=== PATIENT | male | born 1975 | race Caucasian/White ===

== ENCOUNTER 2018-01-02 13:15 | Emergency (ER) | payer OTHER, SELFPAY ==
[2018-01-02 13:20] VITALS: BP 119/75; PULSE 62; RESP 16; TEMP 36.5; O2SAT 98
--- NOTE | 2018-01-02 13:33 | W.ED.GENAD ---
Discharge Plan Disposition Patient Disposition: HOME Condition: Good Discharge Details Chief Complaint: Laceration Clinical Impression: Puncture wound of plantar aspect of right foot Primary Care Provider: Alissa Oliveira ED Provider: Quinton Schreiber Home Meds and New Rx's Prescriptions: New ciprofloxacin HCl 500 mg tablet 500 mg PO BID Qty: 10 RF: 0 Discharge Instructions Instructions: Puncture Wound (ED) Additional Instructions: Watch wound very closely and continue to keep it clean and dry. If there starts to have any signs of infection such as redness, purulent drainage, significant swelling or increase in pain you should start the antibiotics immediately. Otherwise follow-up with your primary care provider as needed for reassessment. Referrals: Alissa Oliveira MD [Primary Care Provider] - (As needed for reassessment) Discharge Data Discharge Date/Time-TO BE ENTERED AT DEPARTURE: 01/02/18 13:34 Medical Decision Making Patient presenting to the emergency department chief complaint of plantar puncture wound. Patient states yesterday while wearing some boots he stepped on a chase nail that went through the shoe and only slightly punctured the bottom of his foot. Patient states he thoroughly washed it out and put some bacitracin on it. Today patient denies any pain or discomfort to the area, no redness, no rash, no swelling but states he is mainly here due to not being up-to-date on tetanus. Patient denies any other symptoms. Physical exam shows a superficial puncture wound to the plantar surface of the right foot. It is nonbleeding and does not appear to have any significant depth in nature. Given the patient has already thoroughly washed this out and wound appears clean dry I do not feel that any further intervention is needed. Patient was ordered a tetanus and did discuss with patient risk versus benefit of prophylactic coverage for Pseudomonas with ciprofloxacin. Given that there are no symptoms at this time of infection and patient seems reliable we did discuss a pocket prescription for Cipro and for patient only begin this if he notices signs of infection otherwise he may discontinue to do acute wound care and keep wound clean and dry. After discussion of diagnosis and plan of care patient has no further needs, questions, or concerns and states clear understanding to return to the emergency department for any worsening symptoms. HPI General Mode of arrival: ambulatory. Date/Time Provider Initiated Documentation: 01/02/18 13:33. Limitations to Documentation: no limitations. Information obtained by: patient and RN notes reviewed. History of Present Illness 42 year old M presents to the emergency department with the chief complaint of Puncture wound right foot, Quality is described as other (Denies pain or discomfort), and is localized to the right and lower extremity. Patient reports no radiation. Patient started experiencing this day(s) (1) and it has been constant. No relieving factors improve symptom(s), No exacerbating factors reported . Patient notes no other symptoms.. Patient did receive the following treatments prior to arrival, other (Bacitracin) Related Data Home Medications Medication Instructions Recorded Confirmed ciprofloxacin HCl 500 mg PO BID #10 tab 01/02/18 Previous Rx's Medication Instructions Recorded ciprofloxacin HCl 500 mg PO BID #10 tab 01/02/18 Allergies Allergy/AdvReac Type Severity Reaction Status Date / Time No Known Allergies Allergy Unverified 01/02/18 13:24 General Stated Complaint: Laceration VÍCTOR: 4 Review of Systems Constitutional Denies chills and Denies fever(s) Musculoskeletal Denies myalgias, Denies deformity, Denies limited range of motion, Denies muscle cramps, Denies muscle weakness and Denies numbness Integumentary/Breasts Reports as per HPI Neurologic Denies numbness PFSH Social History Smoking/Tobacco Use Status: Never Exam Const General: cooperative and no acute distress Orientation: alert, awake and oriented x3 Limitations: mental status not altered Resp Effort & Inspection: normal respiratory effort and able to speak in complete sentences Neuro General: alert, awake, oriented x3, gait normal, tone normal, moves all extremities and no focal motor deficits Motor: no movement abnormalities noted Sensory Exam: no sensory deficits noted Extrem General: normal exam except as noted Right lower extremity: foot Details: puncture wound (Plantar surface, superficial nonbleeding); no tenderness Course Vital Signs Temperature 36.5 C 01/02/18 13:20 Pulse 62 01/02/18 13:20 Respiratory Rate 16 01/02/18 13:20 Blood Pressure 119/75 01/02/18 13:20 Pulse Oximetry 98 01/02/18 13:20 Temperature 36.5 C 01/02/18 13:20 Temperature Source Skin 01/02/18 13:20 Pulse 62 01/02/18 13:20 Respiratory Rate 16 01/02/18 13:20 Respiratory Effort 01/02/18 13:22 Blood Pressure 119/75 01/02/18 13:20 Blood Pressure Position Sitting 01/02/18 13:20 Pulse Oximetry 98 01/02/18 13:20 Oxygen Delivery Method Room Air 01/02/18 13:20 Oxygen Flow Rate 0 01/02/18 13:20 Pain Level 0 01/02/18 13:20
--- NOTE | 2018-01-02 13:37 | ED.GENADUL_ITS ---
Discharge Plan Disposition Patient Disposition: HOME Condition: Good Discharge Details Chief Complaint: Laceration Clinical Impression: Puncture wound of plantar aspect of right foot Primary Care Provider: Alissa Oliveira ED Provider: Quinton Schreiber Home Meds and New Rx's Prescriptions: New ciprofloxacin HCl 500 mg tablet 500 mg PO BID Qty: 10 RF: 0 Discharge Instructions Instructions: Puncture Wound (ED) Additional Instructions: Watch wound very closely and continue to keep it clean and dry. If there starts to have any signs of infection such as redness, purulent drainage, significant swelling or increase in pain you should start the antibiotics immediately. Otherwise follow-up with your primary care provider as needed for reassessment. Referrals: Alissa Oliveira MD [Primary Care Provider] - (As needed for reassessment) Discharge Data Discharge Date/Time-TO BE ENTERED AT DEPARTURE: 01/02/18 13:34 Medical Decision Making Patient presenting to the emergency department chief complaint of plantar puncture wound. Patient states yesterday while wearing some boots he stepped on a chase nail that went through the shoe and only slightly punctured the bottom of his foot. Patient states he thoroughly washed it out and put some bacitracin on it. Today patient denies any pain or discomfort to the area, no redness, no rash, no swelling but states he is mainly here due to not being up- to-date on tetanus. Patient denies any other symptoms. Physical exam shows a superficial puncture wound to the plantar surface of the right foot. It is nonbleeding and does not appear to have any significant depth in nature. Given the patient has already thoroughly washed this out and wound appears clean dry I do not feel that any further intervention is needed. Patient was ordered a tetanus and did discuss with patient risk versus benefit of prophylactic coverage for Pseudomonas with ciprofloxacin. Given that there are no symptoms at this time of infection and patient seems reliable we did discuss a pocket prescription for Cipro and for patient only begin this if he notices signs of infection otherwise he may discontinue to do acute wound care and keep wound clean and dry. After discussion of diagnosis and plan of care patient has no further needs, questions, or concerns and states clear understanding to return to the emergency department for any worsening symptoms. HPI General Mode of arrival: ambulatory . Date/Time Provider Initiated Documentation: 01/02/18 13:33 . Limitations to Documentation: no limitations . Information obtained by: patient and RN notes reviewed . History of Present Illness 42 year old M presents to the emergency department with the chief complaint of Puncture wound right foot, Quality is described as other (Denies pain or discomfort), and is localized to the right and lower extremity. Patient reports no radiation. Patient started experiencing this day(s) (1) and it has been constant. No relieving factors improve symptom(s), No exacerbating factors reported . Patient notes no other symptoms.. Patient did receive the following treatments prior to arrival, other (Bacitracin) Related Data Home Medications Medication Instructions Recorded Confirmed ciprofloxacin HCl 500 mg PO BID #10 tab 01/02/18 Previous Rx's Medication Instructions Recorded ciprofloxacin HCl 500 mg PO BID #10 tab 01/02/18 Allergies Allergy/AdvReac Type Severity Reaction Status Date / Time No Known Allergies Allergy Unverified 01/02/18 13:24 General Stated Complaint: Laceration VÍCTOR: 4 Review of Systems Constitutional Denies chills and Denies fever(s) Musculoskeletal Denies myalgias, Denies deformity, Denies limited range of motion, Denies muscle cramps, Denies muscle weakness and Denies numbness Integumentary/Breasts Reports as per HPI Neurologic Denies numbness PFSH Social History Smoking/Tobacco Use Status: Never Exam Const General: cooperative and no acute distress Orientation: alert, awake and oriented x3 Limitations: mental status not altered Resp Effort & Inspection: normal respiratory effort and able to speak in complete sentences Neuro General: alert, awake, oriented x3, gait normal, tone normal, moves all extremities and no focal motor deficits Motor: no movement abnormalities noted Sensory Exam: no sensory deficits noted Extrem General: normal exam except as noted Right lower extremity: foot Details: puncture wound (Plantar surface, superficial nonbleeding); no tenderness Course Vital Signs Temperature 36.5 C 01/02/18 13:20 Pulse 62 01/02/18 13:20 Respiratory Rate 16 01/02/18 13:20 Blood Pressure 119/75 01/02/18 13:20 Pulse Oximetry 98 01/02/18 13:20 Temperature 36.5 C 01/02/18 13:20 Temperature Source Skin 01/02/18 13:20 Pulse 62 01/02/18 13:20 Respiratory Rate 16 01/02/18 13:20 Respiratory Effort 01/02/18 13:22 Blood Pressure 119/75 01/02/18 13:20 Blood Pressure Position Sitting 01/02/18 13:20 Pulse Oximetry 98 01/02/18 13:20 Oxygen Delivery Method Room Air 01/02/18 13:20 Oxygen Flow Rate 0 01/02/18 13:20 Pain Level 0 01/02/18 13:20
[2018-01-02 13:45] VITALS: BP 119/75; PULSE 62; RESP 16; TEMP 36.5; O2SAT 98
== END 2018-01-02 13:34 | disposition home or self-care (01) ==
PROVIDERS: Emergency Provider Nurse Practitioner Family; PCP Family Medicine
DX: S91.331A Puncture wound without foreign body, right foot, initial encounter (principal); W45.0XXA Nail entering through skin, initial encounter
CPT/HCPCS: 90471; 99284

== ENCOUNTER 2021-03-15 01:13 | Outpatient (CLI) | payer OTHER, SELFPAY ==
[2021-03-15 10:57] LABS: Source Nasal/Nares
[2021-03-15 14:39] LABS: COVID-19 PCR Negative (Negative)
== END 2021-03-15 01:14 | disposition home or self-care (01) ==
LOC: LBO 01:13
PROVIDERS: PCP Nurse Practitioner Adult Health; Visit Provider Surgery
DX: Z20.822 Contact with and (suspected) exposure to COVID-19 (principal)
CPT/HCPCS: 87635

== ENCOUNTER 2021-03-17 06:15 | Day surgery (SDC) | payer OTHER, SELFPAY ==
[2021-03-17] VITALS (9 sets, daily range): BP systolic 110–123; BP diastolic 79–91; PULSE 62–72; RESP 12–18; TEMP 36.2–36.6; TEMPC 36.2; O2SAT 97–100; BMI 26.9
--- NOTE | 2021-03-17 06:31 | ROE_ITS ---
Date of service: 03/17/21 Time of Service: 08:15 Operative Note Operative Note DATE OF PROCEDURE: 03/17/21 PRE-OP DIAGNOSIS: Left inguinal hernia POST-OP DIAGNOSIS: other (direct inguinal hernia) PROCEDURE: Left inguinal hernia repair with mesh SURGEON: Gabriela Florez HEAD ATHLETIC TRAINER: Stephanie Mendoza ANESTHESIA TYPE: Local By Surgeon, General LMA/ETT (Siva Biggs CRNa) and Primary Nerve Block Refer to Anesthesia Record ESTIMATED BLOOD LOSS: 5 PATHOLOGY: none sent COMPLICATIONS: None Patient was transported to: same day Patient's condition: stable Implants: [employer] LOT- [id number] REF- [id number] 06-24-2025 Indications: Mr. Nichols is a healthy 45-year-old gentleman who is here today because of a left inguinal hernia which he noticed about a week before [place]. We discussed the anatomy of hernias as well as the repair. We reviewed the potential complications. Discussed postoperative activity restrictions for a month. Patient wishes to proceed with scheduling the hernia repair. Risks, benefits and complications have been reviewed. Complications include but are not limited to bleeding, infection, injury to vas, vessels and nerves, injury to bowel and adverse reaction to medications. Questions were entertained and answered to their satisfaction and they wished to proceed. Left inguinal hernia repair with mesh Findings: small indirect hernia and small direct hernia Small cord lipoma Procedure Description: After informed concent was obtained the patient was taken to the operating room and placed in a supine position. Monitors and SCDs were applied and a timeout was done. The patient's name, date of , procedure type, procedure site, allergies to medications, preoperative antibiotic, and DVT prophylaxis were all reviewed. Fire risk was assessed. Next anesthesia did a tap block on the left side under ultrasound guidance. Please see their separate dictation. Once anesthesia was done the abdomen was prepped and draped in a sterile surgical fashion. 0.5% Marcaine mixed with exparel was injected into the dermis in the left lower quadrant. An incision was made with a 15 blade in the left lower quadrant. Dissection was done with cautery through the subcutaneous tissues and Nati's fascia down to the external oblique fascia. The external ring was identified and the external oblique fascia was opened sharply through the external ring. The cut fascia was grasped with hemostats the cord structures were identified and a Chas drain was placed around them. The ilioinguinal nerve was identified and cut. The cremasteric muscle was dissected away from the cord structures using both cautery and blunt dissection. A small cord lipoma was identified and removed. There was no hernia sac identified. a small direct hernia was identified. A flat piece of mesh was then attached to the lacunar ligament using a 2-0 Prolene double armed suture. The mesh was secured laterally and medially with a 2-0 Prolene, with a running suture. The tails of the mesh were wrapped around the cord structures effectively cinching down the internal ring. Once the mesh was secured the tissues were irrigated with some normal saline. No bleeding was identified. The external oblique fascia was reapproximated using 2-0 Vicryl running suture. The Nati's fascia was reapproximated using interrupted 3-0 Vicryl. The dermis was re-approximated with a running 4-0 Vicryl. The skin was cleaned and dried and skin affix was applied. The patient was woken up and taken back to recovery in stable condition. There were no immediate complications. Sponge, instrument and needle counts were correct at the end of the case x2.
--- NOTE | 2021-03-17 06:33 | PDOC.DSDIS_ITS ---
Discharge Plan Disposition Patient Disposition: HOME Condition: Good Discharge Details Reason For Visit: [facility] Attending Provider: Gabriela Florez Primary Care Provider: Linda Olivas Home Meds and New Rx's Prescriptions: Continued CBD Gummy 5 mg PO HS PRN (Reason: sleep) RF: 0 valacyclovir [Valtrex] 1 gram tablet 2,000 mg PO .q12h x1 day RF: 0 Discharge Instructions Instructions: Open Herniorrhaphy (DC) Additional Instructions: Activity at Home after surgery: 1. Make sure you walk outside at least 4 times per day 2. You should be able to climb a flight of stairs 3. No driving while in pain or taking pain medications 4. No strenuous activity or heavy lifting for 4 weeks (open surgery) Diet, Nutrition, & wound healin. Avoid alcohol until after you are recovered from your surgery 2. Make sure to eat plenty of lean protein (meat, fish, eggs, cottage cheese, beans) 3. Eat a variety of fruits and vegetables. Eat plenty of high fiber foods to avoid constipation. 4. Drink plenty of liquids to stay hydrated and avoid constipation Pain Medications: 1. Tylenol 650mg every 6 hours as needed and Ibuprofen 600 mg every 6 hours as needed. You may alternate between the 2 medications every 3 hours 2. If a narcotic has been prescribed take as directed only for b reakthrough pain For Constipation: 1. Take Milk of Magnesia or MiraLax as needed for constipation Other: 1. You may shower daily. Do not scrub the incisions 2. Do not soak the incisions for 1 week 3. You may alternate ice and heat as needed for pain and swelling Wound Care: 1. Keep the incisions clean and dry Please call our office if you develop: 1. Fevers >101.5 2. Nausea or Vomiting 3. Worsening pain 4. Redness and thick discharge from the wounds If after hours please call the Hospital at and ask to speak to the on-call surgeon Referrals: Gabriela Florez MD [ [facility] STAFF PHYSICIAN] - 03/26/21 8:30 am Activity:: see above Remove Dressings/Wound Care:: Do Not Remove Shower/Bathe:: 24 hours Diet:: As Tolerated Discharge Orders Discharge Orders: Discharge Order (Routine); Ordered 03/17/21 Ordered By: Gabriela Florez
[2021-03-17] MEDS: Gabapentin 300 MG CAP 600 MG PO (06:41)
[2021-03-17] MEDS: Celecoxib 200 MG CAP PO (06:41)
[2021-03-17] MEDS: Acetaminophen 500 MG TAB 1000 MG PO (06:41)
[2021-03-17] MEDS: Lactated Ringers 1,000 ML 80 ML IV (06:42)
--- NOTE | 2021-03-17 07:00 | W.ANESPRE ---
General Info Date of Service Date Performed: 03/17/21 Height: 5 ft 11 in Weight: 87.4 kg Body Mass Index (BMI): 26.9 Surgical Procedure: Operation Date: 03/17/21 07:40 Proposed Procedures Side Surgeon p Herniorrhaphy Inguinal Left Gabriela Florez MD Meds Allergies and Home Medications Allergies Allergy/AdvReac Type Severity Reaction Status Date / Time No Known Allergies Allergy Verified 03/17/21 06:25 Home Medication Medication Instructions Recorded valacyclovir 1 gram tablet 2,000 mg PO .q12h x1 day tab 06/03/19 CBD Gummy 5 mg PO HS PRN 07/20/20 Current Visit Medications: Current Medications Generic Name Dose Route Start Last Admin Trade Name Freq PRN Reason Stop Dose Admin Acetaminophen 1,000 mg 03/17/21 06:00 03/17/21 06:41 Acetaminophen 500 Mg Tab PO 03/17/21 23:59 1,000 mg PREOP NO Administration Celecoxib 200 mg 03/17/21 06:00 03/17/21 06:41 Celecoxib 200 Mg Cap PO 03/17/21 23:59 200 mg PREOP NO Administration Gabapentin 600 mg 03/17/21 06:00 03/17/21 06:41 Gabapentin 300 Mg Cap PO 03/17/21 23:59 600 mg PREOP NO Administration Ringer's Solution 1,000 mls @ 80 mls/hr 03/17/21 06:00 03/17/21 06:42 IV 03/29/21 23:59 80 mls/hr INFUSION NO Administration Cefazolin Sodium/Dextrose 2 gm in 50 mls @ 100 mls/hr 03/17/21 06:00 Ancef Duplex IVPB 03/17/21 23:59 PREOP NO Ondansetron HCl 4 mg/ Sodium 52 mls @ 200 mls/hr 03/17/21 06:34 Chloride IVPB Q6H PRN PRN IV Miscellaneous Supplies 1 each 03/17/21 06:00 Iv Access IV 03/29/21 23:59 DIRECTED NO Oxycodone HCl 5 mg 03/17/21 06:34 Oxycodone 5 Mg Tab PO Q3H PRN PRN Pain Sodium Chloride 0 ml 03/17/21 06:00 Normal Saline Flush 10 Ml Syr IV 03/29/21 23:59 PRN PRN Sodium Chloride 0 ml 03/17/21 06:00 Normal Saline 10 Ml Vial IJ 03/29/21 23:59 DIRECTED PRN Sterile Water 0 ml 03/17/21 06:00 Water,Injection,Sterile 10 Ml Vial IJ 03/29/21 23:59 DIRECTED PRN PFSH Active Problems Active Problems: Problem Status Onset Code Left groin hernia K40.90 Medical History Medical History Acute anxiety Early-on COVID related, etc. 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; PT effective; exercises Recurrent cold sores RX Valtrex PRN Right wrist tendonitis Intermittent Surgical History Surgical History History of repair of ACL R S/P vasectomy Tobacco Smoking/Tobacco Use Status: Never Alcohol Alcohol Intake: never Substance Use Substance use: Never Substance use type: does not use Vital Signs and Lab Results Vital Signs Most Recent Vital Signs in EMR: Most Recent Vital Signs Temp Pulse Resp BP Pulse Ox 36.6 C 72 18 120/90 99 03/17/21 06:15 03/17/21 06:15 03/17/21 06:15 03/17/21 06:15 03/17/21 06:15 Lab Results Blood Type / Crossmatch: No Data to Display Complete Blood Count: No Data to Display Complete Metabolic Panel: No Data to Display Liver Function Panel: No Data to Display Coagulation Panel: No Data to Display Cardiac Panel: No Data to Display Arterial Blood Gas: No Data to Display Venous Blood Gas: No Data to Display Pancreas Panel: No Data to Display Thyroid Panel: No Data to Display Infectious Disease: Coronavirus (COVID-19)(PCR) Negative (Negative) 03/15/21 08:52 03/15/21 Coronavirus 2019 Source Nasal/Nares 03/15/21 08:52 03/15/21 Blood Cultures: No Data to Display Toxicology Panel: No Data to Display Anesthesia Assessment and Plan Anesthesia History Personal History: No History of Anesthesia Complications Family History: No Family History of Anesthesia Complications Exercise Tolerance Exercise Tolerance: Metabolic Equivalents>4 Pertinent Negatives Pertinent Negatives: No Symptoms of GERD, No Major Cardiovascular Symptoms or Complaints, No Major Pulmonary Symptoms or Complaints and No History of CVA/TIA Cardiac & Pulmonary Exam Cardiac Exam: Normal S1/S2 Heart Sounds Pulmonary Exam: Clear Bilateral Breath Sounds Implantable Cardiac Device Does patient have a Pacemaker or an ICD?: No Airway Exam Known Difficult Airway: No Mallampati Class: 1 Mouth Opening: Narrow (< 3cm) Thyromental Distance: Greater than 3 cm Neck Range of Motion: Full ROM Neck Circumference: Normal Teeth Condition: Normal Dentition ASA Classification ASA Score: ASA 2 Emergency Case?: No NPO Status NPO Status: NPO Clears >2 hours, Solids >8 hours Anesthesia Plan Resuscitation Status: Full Code Anesthesia Technique: General Anesthesia Airway Planned: LMA Monitors Used: Standard Monitors
[2021-03-17] MEDS: ceFAZolin 2 GM/50 ML BAG IVPB (07:21)
--- NOTE | 2021-03-17 07:44 | W.ANESNERVE ---
Nerve Block Single Injection Procedure Date and Time Date Performed: 03/17/21 Procedure Start: 07:44 Location Where Procedure Performed Procedure Location: Operating Room Procedure Stop: 07:50 Reason Performed: Postoperative Analgesia Requesting Provider: Gautam Timeout Performed Timeout Performed: Yes Monitoring Used ECG, Blood Pressure, SpO2 and ETCO2 Sterility Sterility: Hand Hygiene, Surgical Cap, Surgical Mask, Sterile Gloves, Eye Protection and Chlorhexidine Sedation Given During Procedure Sedation Given (Indicate Dose Given): Propofol IV Dose:: 150 mcg/kg/min Patient Mental Status Patient Mental Status: Performed under general anesthesia Nerve Block 1st Nerve Block: Laterality: Left Block Type: TAP Unilateral (+ Ilioinguinal/Illiohypogastric) Needle / Catheter Used: 100mm SonoPlex II Local Anesthetic Bolus (Indicate Dose Given): Bupivacaine 0.5% Dose:: 20cc and Exparel Dose:: 10 cc Additives (Indicate Dose Given): None Ultrasound: Sterile probe cover and gel used Ultrasound Image Saved?: Yes Nerve Stimulator: Not Used Paresthesia: None Procedure Tolerated: No Complications and Patient tolerated well Procedure Outcome: Successful Performed By: Kalyan
[2021-03-17] MEDS: Bupivacaine 0.25% Pres-Free 30 ML VIAL (07:46)
[2021-03-17] MEDS: Bupivacaine LIPOSOME/PF 133 MG/10 ML VIAL IJ (07:46)
--- NOTE | 2021-03-17 08:38 | W.ANESPOSTOP ---
Postoperative Evaluation Date, Time and Location Date Performed: 03/17/21 Time Performed: 08:38 Patient Location: Day Surgery Unit Vital Signs Most Recent Imported Vital Signs: Most Recent Vital Signs Temp Pulse Resp BP Pulse Ox 36.6 C 72 18 120/90 99 03/17/21 06:15 03/17/21 06:15 03/17/21 06:15 03/17/21 06:15 03/17/21 06:15 Most Recent Manually Entered Vital Signs: Adult Blood Pressure: 114/84 Heart Rate: 70 Respirations: 12 Oxygen Saturation (%): 97 Temperature (C): 36.2 C Pain Score (0-10 Scale): 0 Assessment Mental Status: Awake (Alert & Oriented to Patient Baseline) Airway and Respiratory Function: Patent airway with normal (patient baseline) respiratory exam Cardiovascular Function: Hemodynamically Stable Hydration Status: Adequately Hydrated Nausea & Vomiting: No Nausea or Vomiting Pain: Pt. Denies Any Pain Peripheral Nerve Block: Regional nerve block not resolved at time of post operative discharge
== END 2021-03-17 10:14 | disposition home or self-care (01) ==
PROVIDERS: PCP Nurse Practitioner Adult Health; Visit Provider Surgery
PROC: (CPT 49505; principal; 2021-03-17 07:30)
DX: K40.90 Unilateral inguinal hernia, without obstruction or gangrene, not specified as recurrent (principal); D17.6 Benign lipomatous neoplasm of spermatic cord
CPT/HCPCS: 49505; 55520; 76942; C1781; J0690; J1100; J1885; J2001; J2250; J2405

== ENCOUNTER 2022-05-09 10:12 | Outpatient (CLI) | payer OTHER, SELFPAY ==
--- NOTE | 2022-05-09 09:00 | DI.RAD_ITS ---
Exam(s) XR KNEE LT 3V AP,LAT,GABRIELLA EXAM: XR KNEE LT 3V AP,LAT,GABRIELLA CLINICAL HISTORY: L knee pain. TECHNIQUE: 2D digital imaging was performed of the left knee. Three images were obtained. AP, late ral and PA tunnel views were obtained. COMPARISON: No exams were available for comparison FINDINGS: BONES: No acute fracture is present. No bony destructive lesion is seen. JOINTS: The knee is normally aligned. There is a moderate joint effusion. SOFT TISSUE: Normal. IMPRESSION: Moderate joint effusion. DATA REPOSITORY: RADIATION DOSE DELIVERED:
== END 2022-05-09 10:13 | disposition home or self-care (01) ==
LOC: DIORS 10:13
PROVIDERS: PCP Nurse Practitioner Adult Health; Referring Provider Nurse Practitioner Adult Health; Visit Provider Physician Assistant
DX: M25.562 Pain in left knee (principal); M25.462 Effusion, left knee
CPT/HCPCS: 73562

== ENCOUNTER 2022-12-14 09:43 | Emergency (ER) | payer OTHER, SELFPAY ==
[2022-12-14] VITALS (17 sets, daily range): BP systolic 119–164; BP diastolic 76–100; PULSE 69–84; RESP 10–22; TEMP 36.6; O2SAT 93–99
--- NOTE | 2022-12-14 09:30 | RT.EKG_ITS ---
APPROVED REPORT Exam: Resting ECG Reason for Exam: chest pain Patient Location: E HR:83 bpm ECG Measurements Heart Rate 83 AXIS MD 136 P 39 QRSd 88 QRS 54 QT 360 T 45 QTc 424 Conclusion Sinus rhythm...normal P axis, V-rate 60- 99 sinus rhtyhm, normal axis, normal intervals, non ischemic
--- NOTE | 2022-12-14 10:00 | DI.RAD_ITS ---
Exam(s) XR CHEST 2V PA LATERAL EXAM: XR CHEST 2V PA LATERAL CLINICAL HISTORY: chest pain TECHNIQUE: 2D digital imaging was performed of the chest. Two images were obtained. PA and lateral views were obtained. COMPARISON: No exams were available for comparison FINDINGS: MEDIASTINUM: Normal. HEART: Normal. PULMONARY VASCULATURE: Normal. LUNGS: Clear. PLEURAL SPACE: No pleural effusion or pneumothorax. BONE:Within normal limits for the patient's age. OTHER FINDINGS:Normal. IMPRESSION: No acute pulmonary findings. DATA REPOSITORY: RADIATION DOSE DELIVERED:
--- NOTE | 2022-12-14 10:08 | ED.GENADUL_ITS ---
Discharge Plan Disposition Patient Disposition: Home Condition: Improving Discharge Details Chief Complaint: Chest Pain Clinical Impression: Chest pain Primary Care Provider: Linda Olivas ED Provider: Charles Israel Home Meds and New Rx's Prescriptions: No Action CBD Gummy 5 mg PO HS PRN (Reason: sleep) Discharge Instructions Instructions: Chest Pain (ED) Additional Instructions: Please follow-up with your primary care physician. Return to the emergency department for any worsening symptoms Medical Decision Making 47-year-old male no history of coronary artery disease, or thromboembolic disease, presents with epigastric/chest discomfort rating to left arm associate with diaphoresis belching/heartburn sensation that began yesterday worsening this morning, nonexertional, no shortness of breath no abdominal pain no back pain, no peripheral edema, equal radial pulses bilaterally EKG normal sinus rhy thm nonischemic; consider gastritis versus ACS versus biliary colic versus less likely pancreatitis lower suspicion for PE, must also consider aortic pathology however quality of discomfort not tearing none pressure-like no radiation to back with normal perfusion examination, low suspicion for intracranial process such as CVA or TIA, was also consider early gastroenteritis; EKG chest x-ray labs aspirin GI cocktail fluids. 11:33 resting comfortably, asymptomatic, chest pain free, dispo pending second troponin 13: 37 2 troponin negative, x-ray clear, chest pain-free, improvement after GI cocktail. Home care instructions return precautions HPI General Date/Time Provider Initiated Documentation: 12/14/22 09:59 . HPI Narrative: 47-year-old male presents with epigastric discomfort radiating to left arm associated with belching diaphoresis and lightheadedness that began yesterday but worsened this morning, patient took an aspirin and TheraFlu before arrival here. Denies abdominal pain back pain shortness of breath leg pain or swelling or history of cardiovascular disease coronary disease or thromboembolic disease. Related Data Home Medications Medication Instructions Recorded Confirmed CBD Gummy 5 mg PO HS PRN sleep 07/20/20 12/14/22 Allergies Allergy/AdvReac Type Severity Reaction Status Date / Time No Known Allergies Allergy Verified 12/14/22 09:52 General Stated Complaint: Chest Pain VÍCTOR: 3 Review of Systems Narrative: Review of Systems Constitutional: negative Eyes: negative ENT: negative Cardiovascular: Dizziness, diaphoresis Respiratory: negative Gastrointestinal: Epigastric discomfort : negative Musculoskeletal: negative Skin: negative Neurologic: negative Psych: negative PFSH All Active Problems (Updated 12/14/22 @ 13:39 by Charles Israel MD) Chest pain (Acute) Internal derangement of left knee (Acute) Left knee pain (Acute ~03/2022) ?ACL injury s/p alpine skiing; PT & Ortho referrals Lumbar spine pain (Acute) Intermittent; 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; PT effective; exercises Recurrent cold sores RX Valtrex PRN Right wrist tendonitis Intermittent Surgical History History of repair of ACL R S/P inguinal hernia repair using synthetic patch (~03/17/21) S/P vasectomy (~04/2020) Family History Mother Lymphoma ~49yo Father No significant medical problems Sister No significant medical problems Paternal Grandmother Dementia Developed in her late 90s; very mild Maternal Grandfather No significant medical problems Lived into 90s Maternal Grandmother No significant medical problems Lived into 90s Paternal Grandfather No significant medical problems Lived into 90s Social History Smoking/Tobacco Use Status: Never Smoking risk assessment performed?: Yes Alcohol Intake: never Drug use: Never Substance use type: does not use Adopted: No Caregiver/Support person: No Foster care: No Household members: spouse, family, children and other Details: Emelia Huber; daughter Edis casillas 2016, due 06/2019 second child Housing: house Number of Children: 2 number of grandchildren: 0 Communication Needs: None Do you need help understanding health information?: Never current occupation: Self-Employed, Property Management Sexually active: Yes Do you think of yourself as: straight/heterosexual Current gender identity: male What is your relationship status?: Panel score (0-1 are the most socially isolated patients): 1 What type of physical activity do you participate in: bicycling and regular exercise Seatbelt use: always Working smoke detector in home: Yes Fire extinguisher in home: Yes Carbon monox detector in home: Yes Do you feel safe at home: Yes Do you feel safe in your relationship?: Yes Exam Narrative Exam Narrative: Physical Examination General: alert, awake, cooperative, resting comfortably, no acute distress HEENT: normocephalic, atraumatic; PERRL, EOM intact, conjunctiva normal; no nasal discharge; moist mucous membranes, oral and pharyngeal mucosa normal, tolerating secretions Neck: supple, trachea midline; full ROM Chest: normal to inspection Respiratory: normal respiratory effort, speaking in full sentences, clear to auscultation, no wheezing, rales or rhonchi Cardiac: regular rate, regular rhythm, S1S2 intact, no murmurs rubs or gallops; equal radial pulses bilaterally GI: abdomen soft, non-tender, non-distended; no palpable mass or hepatosplenomegaly Skin: no lesions, rashes or trauma appreciated Neuro: AAOx3, normal speech, moving all extremities Extremities: No peripheral edema Psych: Appropriate mood and affect Course Vital Signs Vital signs: Vital Signs Temperature 36.6 C 12/14/22 09:48 Pulse 84 12/14/22 09:48 Respiratory Rate 18 12/14/22 09:48 Blood Pressure 164/100 H 12/14/22 09:48 Pulse Oximetry 99 12/14/22 09:48 Temperature 36.6 C 12/14/22 09:48 Temperature Source Skin 12/14/22 09:48 Pulse 84 12/14/22 09:48 Respiratory Rate 18 12/14/22 09:48 Respiratory Effort Normal 12/14/22 09:51 Blood Pressure 164/100 H 12/14/22 09:48 Blood Pressure Position Supine 12/14/22 09:48 Pulse Oximetry 99 12/14/22 09:48 Oxygen Delivery Method Room Air 12/14/22 09:48 Oxygen Flow Rate 0 12/14/22 09:48
[2022-12-14 10:42] LABS: Abs Immature Grans 0.01 10^3/uL (0.0-0.06); Absolute Basophil Count 0.08 10^3/uL (0.0-0.2); Absolute Eosinophil Count 0.07 10^3/uL (0.0-0.7); Absolute Lymphocyte Count 0.86 10^3/uL (1.2-3.4); Absolute Monocyte Count 0.71 10^3/uL (0.1-0.8); Absolute Neutrophil Count 3.18 10^3/uL (1.2-6.7); Basophils % 1.6; Eosinophils % 1.4; HCT 42.2 % (40.0-50.0); HGB 14.4 g/dL (13.5-17.5); Immature Grans % 0.2; Lymphocytes % 17.5; MCH 29.2 pg (27.0-33.0); MCHC 34.1 % (32.0-36.0); MCV 86 fL (80-95); MPV 9.9 fL (8.0-11.0); Monocytes % 14.5; Neutrophils % 64.8; Platelet Count 196 10^3/uL (130-400); RBC 4.93 10^6/uL (4.36-5.78); RDW-SD 37.7 fL; WBC 4.91 10^3/uL (4.4-10.8)
[2022-12-14] MEDS: Mylanta Suspension 30 ML CUP PO (10:47)
[2022-12-14] MEDS: Aspirin 81 MG CHEW 243 MG CH (10:47)
[2022-12-14] MEDS: Ondansetron 4 MG/2 ML VIAL IVP (10:48)
[2022-12-14] MEDS: Famotidine 20 MG/2 ML VIAL IVP (10:48)
[2022-12-14 10:56] LABS: Prothrombin Time 10.3 sec (9.1-11.1)
[2022-12-14 11:04] LABS: ALT 20 U/L (16-63); AST 16 U/L (15-37); Albumin 3.9 g/dL (3.4-5.0); Alkaline Phosphatase 61 U/L (46-116); Anion Gap 7.6 mmol/L (3-11); BUN 8 mg/dL (7-18); Bilirubin, Total 0.4 mg/dL (0.2-1.0); CO2 27.4 mmol/L (21.0-32.0); CREATININE 0.9 mg/dL (0.70-1.30); Calcium 9.5 mg/dL (8.5-10.1); Chloride 99 mmol/L (98-107); Estimated GFR 105.35 (mL/min/1.73m2); Glucose 127 mg/dL (74-106); Lipase 26 U/L (16-77); NT-proBNP 31 pg/mL (<300); Sodium 134 mmol/L (136-145); Total Protein 7.3 g/dL (6.4-8.2)
[2022-12-14 11:06] LABS: Troponin I < 50 ng/L (<or=60)
[2022-12-14 13:25] LABS: Troponin I < 50 ng/L (<or=60)
== END 2022-12-14 13:46 | disposition home or self-care (01) ==
PROVIDERS: Emergency Provider Emergency Medicine; PCP Nurse Practitioner Adult Health
DX: R07.9 Chest pain, unspecified (principal); R42 Dizziness and giddiness
CPT/HCPCS: 80053; 83690; 93005; 96374; 96375; 99284; 71046; 83880; 84484; 85025; 85610; 85730; 93010; J2405

== ENCOUNTER 2023-01-26 09:26 | Day surgery (SDC) | payer OTHER, SELFPAY ==
--- NOTE | 2023-01-25 19:08 | W.PM.DSUDISC ---
Date of service: 01/26/23 Time of Service: 10:46 Discharge Plan Disposition Patient Disposition: Home Condition: Good Discharge Details Reason For Visit: Screening colonoscopy Attending Provider: Sudarshan Ramirez Primary Care Provider: Linda Olivas Home Meds and New Rx's Prescriptions: Continued CBD Gummy 5 mg PO HS PRN (Reason: sleep) clonazepam 0.5 mg tablet 0.25 - 0.5 mg PO DAILY PRN (Reason: acute anxiety) Qty: 20 0RF Patient Comments: couple years Rx Instructions: Acute anxiety Discontinued bisacodyl [Dulcolax (bisacodyl)] 5 mg tablet,delayed release (DR/EC) 5 mg PO ONCE Qty: 4 0RF Rx Instructions: Colonoscopy Bowel Prep- Per Instructions polyethylene glycol 3350 17 gram/dose powder 238 g PO ONCE Qty: 238 0RF Rx Instructions: Colonoscopy Bowel Prep- Per Instructions Discharge Instructions Instructions: Colorectal Polyps (GEN) Additional Instructions: Daryl, we are able to complete your colonoscopy today without any issues. He did have 1 polyp in your rectum. I removed it completely. I will send it off for testing, and once I have the results from the polyp report, I will be in touch with my recommendations for your next colonoscopy. If you have any questions at all in the meantime, please do not hesitate to call. 1. If tolerated, consume a soft, low fiber diet for 1-2 days. 2[address] Do not drive, drink alcohol, operate machinery, make critical decisions, or do activities that require coordination or balance for 24 hours. 3. Because air was put into your colon during the procedure, expelling air from your rectum (passing gas or farting) is normal. 4. You may not have a bowel movement for 1-3 days because of the colonoscopy prep. This is normal. 5. Go directly to the emergency room if you notice any of the following: Develop chills (warm to touch), or if you have a thermometer and your temperature is above 101 Difficulty breathing or difficultly swallowing Persistent vomiting Severe abdominal pain, other than gas cramps Severe chest pain Black, tarry stools Any bleeding ? exceeding one tablespoon 6. Call your physician if the site where your intravenous was started becomes red, swollen, painful, and warm to touch. 7. Your physician has reviewed your pre-procedure medications. Please continue to take those medications as previously ordered. You will be given specific information/education regarding any changes to your medications before leaving. Stand Alone Forms: Anesthesia Discharge Inst., Paulette Morales (DSU) Activity:: Activity as Tolerated Diet:: As Tolerated Discharge Orders Discharge Orders: Discharge Order (Routine); Ordered 01/25/23 Ordered By: Sudarshan Ramirez DS: Diagnosis Discharge Diagnosis (1) Screen for colon cancer: Status: Acute Asessment and Plan: Follow-up on polypectomy results
--- NOTE | 2023-01-25 19:09 | W.COLOREPORT ---
Date of service: 01/26/23 Time of Service: 10:53 Colonoscopy Report Date of procedure: 01/26/23 Pre-op diagnosis general: Screening colonoscopy Post-op diagnosis procedure note: other (Rectal polyp) Procedure: Colonoscopy with polypectomy Surgeon: Sudarshan Ramirez Anesthesia Type: General:No Airway Estimated blood loss (mL): 5 Pathology: other (1 cm rectal polyp) Complications: None Disposition: same day Indications: Daryl is a 47-year-old man who needs this for screening colonoscopy Prep: Miralax/Dulcolax Procedure Start Time: 10:19 Procedure End Time: 10:34 Retraction Time: 9 Findings: 1 cm rectal polyp Procedure Description: After the induction of monitored anesthetic care, and with the patient in left lateral decubitus position, I began by performing an external anorectal exam.? Perineum and skin were normal, as was the anal verge.? There was no evidence of external hemorrhoids.? Next, I performed a digital rectal exam.? I did not appreciate any abnormal findings.? Next, I advanced a colonoscope into the rectal vault.? I performed retroflexion.? I this was normal.? In the upper portion of the rectal vault was a 1 cm pedunculated polyp. I removed it with cold snare polypectomy without any issue. There is minimal bleeding. Using insufflation, I then advanced the colonoscope beyond the rectal folds and into the sigmoid colon before advancing towards the cecum.? The quality of the prep was excellent.? The scope was noted to be in the cecum by identification of the ileocecal valve and appendiceal orifice.? I then began withdrawing the colonoscope using repeated irrigation as necessary for full evaluation of the colonic mucosa. ?Once the scope was withdrawn to the level of the rectum, great care was taken to examine portions of the rectal folds.? Finally, the scope was withdrawn and the patient was brought to the same-day surgery recovery unit as the anesthetic wore off. ?The findings and instructions were shared with the patient prior to discharge. [place] Bowel Prep [place] Bowel Prep Right Colon: 3 Left Colon: 3 Transverse Colon: 3 Total Score: 9
[2023-01-26 09:43] VITALS: BP 126/91; PULSE 90; RESP 16; TEMP 36.8; O2SAT 98
[2023-01-26] MEDS: Lactated Ringers 1,000 ML 80 ML IV (09:45)
--- NOTE | 2023-01-26 09:58 | ANES.PREOP_ITS ---
General Info Date of Service Date Performed: 02/02/23 Height: 5 ft 11 in Weight: 85.9 kg Body Mass Index (BMI): 26.4 Surgical Procedure: Operation Date: 01/26/23 10:05 Proposed Procedure Side Surgeon p Minor Ramirez MD Meds Allergies and Home Medications Allergies Allergy/AdvReac Type Severity Reaction Status Date / Time No Known Allergies Allergy Verified 01/26/23 09:40 Home Medication Medication Instructions Recorded CBD Gummy 5 mg PO HS PRN sleep 07/20/20 clonazepam 0.5 mg tablet 0.25 - 0.5 mg (0.5 - 1 x 0.5 mg) 12/21/22 PO DAILY PRN acute anxiety #20 tabs Current Visit Medications: Current Medications Generic Name Dose Route Start Last Admin Trade Name Freq PRN Reason Stop Dose Admin Hyoscyamine Sulfate 0.125 mg 01/25/23 19:10 Hyoscyamine 0.125 Mg Sl/Oral/Chew SL 02/24/23 19:09 DIRECTED PRN Ringer's Solution 1,000 mls @ 80 mls/hr 01/26/23 06:00 01/26/23 09:45 IV 01/26/23 23:59 80 mls/hr INFUSION NO Administration IV Miscellaneous Supplies 1 each 01/26/23 06:00 Iv Access IV 01/26/23 23:59 DIRECTED NO Ondansetron HCl 4 mg 01/25/23 19:10 Ondansetron 4 Mg/2 Ml Vial IVP 02/24/23 19:09 Q4H PRN PRN Nausea / Vomiting Sodium Chloride 0 ml 01/26/23 06:00 Normal Saline Flush 10 Ml Syr IV 01/26/23 23:59 PRN PRN Sodium Chloride 0 ml 01/26/23 06:00 Normal Saline 10 Ml Vial IJ 01/26/23 23:59 DIRECTED PRN Sterile Water 0 ml 01/26/23 06:00 Water,Injection,Sterile 10 Ml Vial IJ 01/26/23 23:59 DIRECTED PRN PFSH Active Problems Active Problems: Problem Status Onset Code Screen for colon cancer Z12.11 Acute anxiety ~2019 F41.9 Internal derangement of left knee M23.92 Left knee pain ~03/2022 M25.562 Lumbar spine pain M54.5 Medical History Medical History Left groin hernia (~01/2021) Right wrist tendonitis Intermittent Recurrent cold sores RX Valtrex PRN Surgical History Surgical History S/P inguinal hernia repair using synthetic patch (~03/17/21) S/P vasectomy (~04/2020) History of repair of ACL R Tobacco Smoking/Tobacco Use Status: Never Alcohol Alcohol Intake: never Substance Use Substance use: Never Substance use type: does not use Details: CBD gummy at bedtime Vital Signs and Lab Results Vital Signs Most Recent Vital Signs in EMR: Most Recent Vital Signs Temp Pulse Resp BP Pulse Ox 36.8 C 90 16 126/91 H 98 01/26/23 09:43 01/26/23 09:43 01/26/23 09:43 01/26/23 09:43 01/26/23 09:43 Lab Results Blood Type / Crossmatch: No Data to Display Complete Blood Count: No Data to Display Complete Metabolic Panel: No Data to Display Liver Function Panel: No Data to Display Coagulation Panel: No Data to Display Cardiac Panel: No Data to Display Arterial Blood Gas: No Data to Display Venous Blood Gas: No Data to Display Pancreas Panel: No Data to Display Thyroid Panel: No Data to Display Infectious Disease: 2 No Data to Display Blood Cultures: No Data to Display Toxicology Panel: No Data to Display Imaging and Studies Imaging and Studies Study information below may be from another EMR and interpreted by another provider. Please see original notes in EMR for more complete details. EKG Summary: Sinus rhythm...normal P axis, V-rate 60- 99 sinus rhtyhm, normal axis, normal intervals, non ischemic 12/14/22 Anesthesia Assessment and Plan Anesthesia History Personal History: No History of Anesthesia Complications Family History: No Family History of Anesthesia Complications Exercise Tolerance Exercise Tolerance: Metabolic Equivalents>4 Pertinent Negatives Pertinent Negatives: No Symptoms of GERD, No Major Cardiovascular Symptoms or Complaints, No Major Pulmonary Symptoms or Complaints and No History of CVA/TIA Cardiac & Pulmonary Exam Cardiac Exam: Normal S1/S2 Heart Sounds Pulmonary Exam: Clear Bilateral Breath Sounds Implantable Cardiac Device Does patient have a Pacemaker or an ICD?: No Airway Exam Known Difficult Airway: No Mallampati Class: 1 Mouth Opening: Narrow (< 3cm) Thyromental Distance: Greater than 3 cm Neck Range of Motion: Full ROM Neck Circumference: Normal Teeth Condition: Normal Dentition ASA Classification ASA Score: ASA 2 Emergency Case?: No NPO Status NPO Status: NPO Clears >2 hours, Solids >8 hours Anesthesia Plan Resuscitation Status: Full Code Anesthesia Technique: General Anesthesia Airway Planned: Natural Airway Monitors Used: Standard Monitors
[2023-01-26 09:59] VITALS: BMI 26.4
--- NOTE | 2023-01-26 10:21 | BOWEL_PTH ---
PATIENT: Siva Nichols LOC: [facility] U#:[id number] AGE/SX: 47/M ROOM: RE01/26/[address]: Sudarshan Ramirez MD : 1975 BED: DIS: 01/26/2023 SPEC #: [id number] RECD: 01/26/23 12:47 STATUS: BRONWYN REQ #: [id number] VIKAS: 01/26/23 10:[address]: Sudarshan Ramirez DEPT: Surgical Specimen RECD BY: Greta Bowen ENTERED: 01/26/23 12:48 SP TYPE: Bowel OTHR DR: Linda Olivas APRN Tissues: 1 - BIOPSY BOWEL Procedures: GROSS AND MICRO LEVEL 4 Comments: [id number]
[2023-01-26 10:42] VITALS: BP 103/76; PULSE 83; RESP 18; TEMP 36.6; O2SAT 93
[2023-01-26 11:09] VITALS: BP 116/87; PULSE 77; RESP 18; TEMP 36.6; O2SAT 97
--- NOTE | 2023-01-26 13:23 | W.ANESPOSTOP ---
Postoperative Evaluation Date, Time and Location Date Performed: 01/26/23 Time Performed: 11:11 Patient Location: Day Surgery Unit Vital Signs Most Recent Imported Vital Signs: Most Recent Vital Signs Temp Pulse Resp BP Pulse Ox 36.6 C 77 18 116/87 97 01/26/23 11:09 01/26/23 11:09 01/26/23 11:09 01/26/23 11:09 01/26/23 11:09 Pain Score Most Recent Pain Score: Most Recent Pain Score Pain Level 0 01/26/23 11:09 Assessment Mental Status: Awake (Alert & Oriented to Patient Baseline) Airway and Respiratory Function: Patent airway with normal (patient baseline) respiratory exam Cardiovascular Function: Hemodynamically Stable Hydration Status: Adequately Hydrated Nausea & Vomiting: No Nausea or Vomiting Pain: Pt. Denies Any Pain Peripheral Nerve Block: Patient did not receive a nerve block
== END 2023-01-26 11:28 | disposition home or self-care (01) ==
LOC: SUR 09:26
PROVIDERS: PCP Nurse Practitioner Adult Health; Visit Provider Surgery
PROC: 0DJD8ZZ Inspection of Lower Intestinal Tract, Via Natural or Artificial Opening Endoscopic (ICD-10-PCS; CPT 45378; principal; 2023-01-26 10:00)
DX: Z12.11 Encounter for screening for malignant neoplasm of colon (principal); D37.5 Neoplasm of uncertain behavior of rectum
CPT/HCPCS: 45385; 88305

== ENCOUNTER 2023-05-31 18:42 | Outpatient (CLI) | payer OTHER, SELFPAY ==
--- NOTE | 2023-05-31 18:30 | RT.EKG_ITS ---
APPROVED REPORT Exam: Resting ECG Reason for Exam: assess rhythm Patient Location: O HR:64 bpm ECG Measurements Heart Rate 64 AXIS AL 138 P 38 QRSd 83 QRS 28 QT 398 T 33 QTc 411 Conclusion Sinus rhythm...normal P axis, V-rate 50- 99 Normal Electrocardiogram
== END 2023-05-31 18:43 | disposition home or self-care (01) ==
LOC: DI.KIM 18:45
PROVIDERS: PCP Nurse Practitioner Adult Health; Visit Provider Nurse Practitioner Adult Health
DX: R20.2 Paresthesia of skin (principal)
CPT/HCPCS: 93010

== ENCOUNTER 2023-06-02 01:53 | Outpatient (CLI) | payer OTHER, SELFPAY ==
[2023-06-02 16:14] LABS: ALT 28 U/L (16-63); AST 14 U/L (15-37); Albumin 4.2 g/dL (3.4-5.0); Alkaline Phosphatase 63 U/L (46-116); Anion Gap 11.6 mmol/L (3-11); BUN 10 mg/dL (7-18); Bilirubin, Total 0.8 mg/dL (0.2-1.0); CO2 27.4 mmol/L (21.0-32.0); CREATININE 0.8 mg/dL (0.70-1.30); Calcium 9.3 mg/dL (8.5-10.1); Calculated LDL 199 mg/dL (<100); Chloride 103 mmol/L (98-107); Cholesterol 279 mg/dL (<200); Estimated GFR 109.17 (mL/min/1.73m2); Folate 12.6 ng/mL (8.6-20.0); Glucose 101 mg/dL (74-106); HDL Cholesterol 44 mg/dL (40-60); Potassium 4.1 mmol/L (3.5-5.1); Sodium 142 mmol/L (136-145); TSH (W/Ref FT4) 2.29 uIU/mL (0.36-3.74); Total Protein 7.3 g/dL (6.4-8.2); Triglyceride 184 mg/dL (<150); Vitamin B12 381 pg/mL (193-986)
[2023-06-02 16:39] LABS: C-Reactive Protein < 0.50 mg/dL (<or=0.5)
== END 2023-06-02 01:54 | disposition home or self-care (01) ==
LOC: LBO 01:53
PROVIDERS: PCP Nurse Practitioner Adult Health; Referring Provider Nurse Practitioner Adult Health; Visit Provider Nurse Practitioner Adult Health
DX: E03.8 Other specified hypothyroidism (principal); Z13.220 Encounter for screening for lipoid disorders; Z13.1 Encounter for screening for diabetes mellitus; R20.2 Paresthesia of skin; F41.9 Anxiety disorder, unspecified
CPT/HCPCS: 36415; 80053; 80061; 82607; 82746; 84443; 86140

== ENCOUNTER 2023-10-20 00:35 | Outpatient (CLI) | payer OTHER, SELFPAY ==
--- OUTSIDE RECORDS SUMMARY | 2023-10-20 00:49 | XMS_ITS | Referral Summary ---
Author Organization [facility] Address [address] [place] [address] Care Team Providers Care Shirt Trimmer Name Role Phone Unknown, Provider Primary Care Provider Social History Tobacco Use Types Packs/Day Years Used Date Smoking Tobacco: Never Assessed Sex and Gender Information Value Date Recorded Sex Assigned at Not on file Gender Identity Not on file Sexual Orientation Not on file Plan of Treatment Not on file Care Teams Shirt Trimmer Relationship Specialty Start Date End Date Unknown, Provider, PCP - General 12/28/22
--- OUTSIDE RECORDS SUMMARY | 2023-10-20 00:49 | XMS_ITS | Clinical Summary ---
Author Organization [facility] Address [address] [place] [address] Care Team Providers Care Audiologist Name Role Phone Unknown, Provider Primary Care Provider Social History Tobacco Use Types Packs/Day Years Used Date Smoking Tobacco: Never Assessed Sex and Gender Information Value Date Recorded Sex Assigned at Not on file Gender Identity Not on file Sexual Orientation Not on file Plan of Treatment Health Maintenance Due Date Last Done Comments Hepatitis C Screen 1975 Hepatitis B Vaccine (1 of 3 - 19+ 3-dose series) 08/08 COVID-19 Vaccine (2022- season) 2022 Care Teams Audiologist Relationship Specialty Start Date End Date Unknown, Provider, PCP - General 12/28/22
--- OUTSIDE RECORDS SUMMARY | 2023-10-20 00:49 | XMS_ITS | Encounter Summary ---
Author Organization [facility] Address [address] [place] [address] Care Team Providers Care Manager Child Name Role Phone Unknown, Provider Primary Care Provider Encounter Details Date Type Department Care Team (Late st Contact Info) Description 01/26/2023 Lab Requisition [facility] Pathology & Laboratory Medicine - [address] [phone] Sudarshan Ramirez MD [address] [place] [address], [address] [place] [address] Encounter for screening for malignant neoplasm of colon Social History Tobacco Use Types Packs/Day Years Used Date Smoking Tobacco: Never Assessed Sex and Gender Information Value Date Recorded Sex Assigned at Not on file Gender Identity Not on file Sexual Orientation Not on file documented as of this encounter Plan of Treatment Not on file documented as of this encounter Procedures Procedure Name Priority Date/Time Associated Diagnosis Comments SURGICAL PATHOLOGY Today 01/26/2023 10 :21 EST Encounter for screening for malignant neoplasm of colon documented in this encounter Results * SURGICAL PATHOLOGY (01/26/2023 10:21 EST) Note to Patient The following pathology results have been interpreted by your pathologist and may be available to you before your health provider has had the opportunity to review them. Please allow time for your provider to receive these results and explore management options, if applicable. 01/31/2023 20:10 EST [facility] Final Diagnosis A. RECTUM, POLYP, BIOPSY: - Tubulovillous adenoma. 01/31/2023 20:10 EST [facility] Attestation There was significant resident/fellow involvement in the diagnostic evaluation of this case. By the signature below, the attending physician certifies that they have personally conducted a gross and/or microscopic examination of the described specimens and rendered or confirmed the above diagnosis. 01/31/2023 20:10 [facility] at 2010 Clinical History Colonoscopy screening, rectal polyp 01/31/2023 20:10 [facility] Gross Description A. Received in formalin labelled with proper patient identification (initials L, D) and rectal polyp is a burns-pink polypoid tissue measuring 1.0 x 1.0 x 0.4 cm. Trisected and submitted entirely in A1. SHARON OQUENDO(ASCP) 01/26/2023 20:01 01/31/2023 20:10 [facility] Resident/Herbie w: Thomas Babcock MD 01/31/2023 20:10 [facility] Performing Lab [facility] 01/31/2023 20:10 [facility] Scanned Images 01/31/2023 20:10 [facility] Tissue SPECIMEN FROM RECTUM / Unknown 01/26/2023 10:21 EST 01/26/2023 16:49 EST Sudarshan Ramirez MD PATHOLOGY ORDERABLES [facility] [address] [place] [address] documented in this encounter Visit Diagnoses Diagnosis Encounter for screening for malignant neoplasm of colon Special screening for malignant neoplasms, colon documented in this encounter Care Teams Manager Child Relationship Specialty Start Date End Date Unknown, Provider, PCP - General 12/28/22 documented as of this encounter
[2023-10-20 07:59] LABS: Calculated LDL 184 mg/dL (<100); Cholesterol 258 mg/dL (<200); HDL Cholesterol 50 mg/dL (40-60); Triglyceride 124 mg/dL (<150)
== END 2023-10-20 00:36 | disposition home or self-care (01) ==
LOC: LBO 00:36
PROVIDERS: PCP Nurse Practitioner Adult Health; Referring Provider Nurse Practitioner Adult Health; Visit Provider Nurse Practitioner Adult Health
DX: E78.00 Pure hypercholesterolemia, unspecified (principal)
CPT/HCPCS: 36415; 80061; 83695

== ENCOUNTER 2024-01-05 15:50 | Outpatient (CLI) | payer OTHER, SELFPAY ==
[2024-01-05 07:51] LABS: Calculated LDL 172 mg/dL (<100); Cholesterol 255 mg/dL (<200); HDL Cholesterol 48 mg/dL (40-60); Triglyceride 179 mg/dL (<150)
[2024-01-07 11:06] LABS: Lipoprotein (a) 19 nmol/L (<75)
== END 2024-01-05 15:51 | disposition home or self-care (01) ==
LOC: LBO 15:51
PROVIDERS: PCP Nurse Practitioner Adult Health; Visit Provider Nurse Practitioner Adult Health
DX: E78.00 Pure hypercholesterolemia, unspecified (principal)
CPT/HCPCS: 36415; 80061; 83695

== ENCOUNTER 2024-11-05 08:02 | Outpatient (CLI) | payer OTHER, SELFPAY ==
[2024-11-05 07:40] LABS: Hemoglobin A1C 5.8 % (<5.7)
[2024-11-05 08:07] LABS: Anion Gap 7.6 mmol/L (3-11); BUN 10 mg/dL (7-18); CO2 30.4 mmol/L (21.0-32.0); Calcium 9.1 mg/dL (8.5-10.1); Calculated LDL 201 mg/dL (<100); Chloride 102 mmol/L (98-107); Cholesterol 292 mg/dL (<200); Estimated GFR 107.82 (mL/min/1.73m2); Glucose 112 mg/dL (74-106); HDL Cholesterol 39 mg/dL (>or=40); Potassium 4.4 mmol/L (3.5-5.1); Sodium 140 mmol/L (136-145); Triglyceride 260 mg/dL (<150)
[2024-11-05 19:02] LABS: PSA, Diagnostic 0.5 ng/mL (<=3.5)
== END 2024-11-05 08:03 | disposition home or self-care (01) ==
LOC: LBO 08:03
PROVIDERS: PCP Nurse Practitioner Adult Health; Referring Provider Nurse Practitioner Adult Health; Visit Provider Nurse Practitioner Adult Health
DX: E78.00 Pure hypercholesterolemia, unspecified (principal); R73.01 Impaired fasting glucose; Z51.81 Encounter for therapeutic drug level monitoring; F41.1 Generalized anxiety disorder; N40.1 Benign prostatic hyperplasia with lower urinary tract symptoms; N13.8 Other obstructive and reflux uropathy
CPT/HCPCS: 36415; 80048; 80061; 83036; 84153

== ENCOUNTER 2025-02-05 07:20 | Outpatient (CLI) | payer OTHER, SELFPAY ==
[2025-02-05 08:40] LABS: Anion Gap 7.2 mmol/L (3-11); BUN 14 mg/dL (9-23); CO2 27.8 mmol/L (20.0-31.0); Calcium 9.0 mg/dL (8.3-10.6); Chloride 107 mmol/L (98-107); Glucose 107 mg/dL (74-106); Potassium 4.2 mmol/L (3.5-5.1); Sodium 142 mmol/L (136-145)
[2025-02-10 17:20] LABS: Apolipoprotein B, Serum 146 mg/dL; Beta VLDL Cholesterol Not Detected mg/dL (<15); Beta VLDL Triglycerides Not Detected mg/dL (<15); Cholesterol, Total, CDC 264 mg/dL; Chylomicron Cholesterol Not Detected; Chylomicron Triglycerides Not Detected; HDL Cholesterol, CDC 37 mg/dL (>=40); LpX Not detected; Triglycerides, CDC 168 mg/dL; VLDL Triglycerides 88 mg/dL (<120)
[2025-02-15 16:11] LABS: Anti GAD65 Abs <5.0 U/mL
== END 2025-02-05 07:21 | disposition home or self-care (01) ==
LOC: LBO 07:20
PROVIDERS: PCP Nurse Practitioner Adult Health; Visit Provider Nurse Practitioner Adult Health
DX: E78.00 Pure hypercholesterolemia, unspecified (principal); R73.01 Impaired fasting glucose
CPT/HCPCS: 36415; 80048; 80061; 83695; 86337; 86341; 82172; 82664; 84681

== ENCOUNTER → 2025-02-13 09:16 | Outpatient (CLI) | payer OTHER, SELFPAY ==
--- NOTE | 2025-02-13 09:15 | DI.RAD_ITS ---
Exam(s) XR RIBS RT W PA LAT CHEST EXAM: XR RIBS RT W PA LAT CHEST CLINICAL HISTORY: R07.89 Other chest rib pain,Rule out fracture TECHNIQUE: 2D digital imaging was performed.Six images were obtained. COMPARISON: CR XR CHEST 2V PA LATERAL from 12/14/2022 FINDINGS: MEDIASTINUM: Normal. HEART: Normal. PULMONARY VASCULATURE: Normal. LUNGS: Clear. PLEURAL SPACE: No pleural effusion or pneumothorax. BONE:Normal. RIGHT RIBS: Normal. OTHER FINDINGS:Normal. IMPRESSION: 1. No acute pulmonary findings. 2. Unremarkable right ribs. DATA REPOSITORY: RADIATION DOSE DELIVERED:
== END ==
LOC: DI 09:16
PROVIDERS: PCP Nurse Practitioner Adult Health
DX: R07.89 Other chest pain (principal)
CPT/HCPCS: 71046; 71100